=== PATIENT | female | born 1980 | race American Indian/Alaskan Native ===

== ENCOUNTER 2016-11-25 09:51 | Emergency (ER) | payer SELFPAY ==
[2016-11-25 10:05] VITALS: BP 121/82
[2016-11-25 11:13] LABS: Bilirubin,Urine NEG (Negative); Blood,Urine NEG (Negative); Ketones,Urine NEG (Negative); Leukocyte Esterase,Urine NEG (Negative); Nitrite,Urine NEG (Negative); Protein,Urine <15 mg/dL mg/dL (Negative); Urobilinogen,Urine < 2.0 mg/dL (<2.0)
[2016-11-25 11:17] LABS: WBC,Urine < 1.0 /HPF (0.0-6.0)
[2016-11-25] MEDS ORDERED: TORADOL IM ONE (11:51)
--- NOTE | 2016-11-25 12:20 | XRay Report ---
RIGHT KNEE, 2 views: History: Pain after fall. The bony architecture is intact without evidence of fracture or dislocation. No significant soft tissue abnormality is seen. IMPRESSION: Unremarkable right knee.
[2016-11-25 13:14] LABS: Mucus,Urine FEW /HPF
--- NOTE | 2016-11-25 14:21 | Emergency Department Report ---
Entered by ETHEL IRVIN, acting as scribe for TENA PALMA PA. ED Lower Extremity HPI - General Chief Complaint: Pain General Stated Complaint: RT KNEE PAIN Time Seen by Provider: 11/25/16 11:30 Source: patient Mode of arrival: Ambulatory Limitations: No Limitations - History of Present Illness Initial Comments: 36 year old female presents to the ED for evaluation of right knee pain for 4 days. Per patient, her knee collapsed while she was walking causing her to fall to ground. She states she heard a pop when injury occurred. She describes her pain as sharp and burning. She also reports associated intermittent numbness and tingling from right knee up to right hip. Patient reports she took a prescription pain tablet after onset but does not recall name of medication. MD Complaint: knee injury Onset/Timin -: days(s) Injury: Knee: Right (knee "collapsed" while walking, heard "pop") Type of Injury: unknown Improves With: nothing Worsens With: weight bearing, movement Context: walking Associated Symptoms: snap/pop sensation, swelling, numbness, tingling, able to partially bear weight, ambulatory Treatments Prior to Arrival: other (Rx pain medicaiton, patient does not recall name) - Related Data Previous Rx's Medication Instructions Recorded Last Taken Type Cyclobenzaprine [Flexeril] 10 mg PO QHS PRN #20 tablet 11/25/16 Unknown Rx Ketorolac [Toradol] 10 mg PO Q6H PRN #30 tablet 11/25/16 Unknown Rx Allergies Allergy/AdvReac Type Severity Reaction Status Date / Time Penicillins Allergy Mild Unknown Verified 11/25/16 10:07 ED Review of Systems Comment: All other systems reviewed and negative Constitutional: denies: chills Gastrointestinal: denies: abdominal pain, nausea, vomiting Musculoskeletal: other (pain and swelling to right knee, "pop" sound) Neurological: numbness (from right knee up to right hip), paresthesias (from right knee up to right hip) ED Past Medical Hx - Past Medical History Previous Medical History?: No - Surgical History Past Surgical History?: No - Social History Smoking Status: Current Some Day Smoker Substance Use Type: Alcohol - Medications Home Medications: Home Medications Medication Instructions Recorded Confirmed Last Taken Type Cyclobenzaprine [Flexeril] 10 mg PO QHS PRN #20 tablet 11/25/16 Unknown Rx Ketorolac [Toradol] 10 mg PO Q6H PRN #30 tablet 11/25/16 Unknown Rx ED Physical Exam - General Limitations: No Limitations - Other Other exam information: GENERAL: Patient is alert and oriented x 3. No apparent distress, normal gait, atraumatic. HEAD: Head is normocephalic and atraumatic. LUNGS: Symmetrical with respiration. No wheezing, rales or crackles, CTAB. HEART: Regular rate and rhythm with normal S1/S2 present. No murmurs, rubs, or gallops. EXTREMITIES/MUSCULOSKELETAL: No cyanosis, clubbing, rash, lesions or edema. Mild pain with flexion and extension of right knee. Mild swelling to right knee with no erythema. Mild tenderness to palpation of right knee. No pain with flexion or extension of left knee. No calf tenderness bilaterally. UE/LE Pulses 2+ bilaterally. LE and UE 5+ strength bilaterally. Patient is ambulatory in the emergency department. SKIN: Warm and dry. No lesions, ulceration or induration present NEUROLOGIC: No focal deficit., Cranial nerves II - XII are grossly intact. No loss of sensation. PSYCHIATRIC: Mood is congruent with affect. ED Course Vital Signs 11/25/16 10:00 Temperature 98.8 F Pulse Rate 80 Respiratory 18 Rate Blood Pressure 121/82 O2 Sat by Pulse 99 Oximetry ED Lower Extremity MDM - Medical Decision Making 36-year-old female presents with knee pain. ED course: Patient received 60 mg of Toradol Knee x-ray ordered. X-ray shows no fractures no dislocation no acute injury no tissue swelling. Discussed sinus to patient. Discussed patient sits a home medication of Flexeril and Toradol. Discussed patient follow up with primary care physician. She will position sense a complaint of follow-up. Vital signs stable. Patient is in no acute respiratory distress. ED Disposition Clinical Impression: Knee pain, right Qualifiers: Chronicity: unspecified Qualified Code(s): M25.561 - Pain in right knee Arthralgia Qualifiers: Joint pain location: knee Laterality: right Qualified Code(s): M25.561 - Pain in right knee Disposition: DISCHARGED TO HOME OR SELFCARE Is pt being admited?: No Does the pt Need Aspirin: No Condition: Stable Instructions: Arthralgia (ED), Knee Pain (ED), Knee Exercises (GEN) Prescriptions: Cyclobenzaprine [Flexeril] 10 mg PO QHS PRN #20 tablet PRN Reason: Muscle Spasm Ketorolac [Toradol] 10 mg PO Q6H PRN #30 tablet PRN Reason: Pain Referrals: PRIMARY CAREMD [Primary Care Provider] - 3-5 Days MAISHA ZUNIGA MD [Referring] - 3-5 Days [facility] [Outside] - 3-5 Days [facility]Outside[facility] - 3-5 Days [facility] [Outside] - 3-5 Days Forms: Work/School Release Form(ED) Time of Disposition: 12:35 This documentation as recorded by the ALBARO ruggiero REBEKAH,accurately reflects the service I personally performed and the decisions made by MINERVA duff OYINLOLA A , PA.
== END 2016-11-25 12:46 | disposition home or self-care (01) ==
LOC: ED 09:51
DX: M25.561 Pain in right knee (principal); Z88.0 Allergy status to penicillin; Z72.0 Tobacco use; W18.30XA Fall on same level, unspecified, initial encounter; Y93.89 Activity, other specified; Y99.9 Unspecified external cause status; Y92.89 Other specified places as the place of occurrence of the external cause
CPT/HCPCS: 73560; 81001; 81025; 96372; 99283; J1885

== ENCOUNTER 2016-12-14 11:53 | Emergency (ER) | payer SELFPAY ==
[2016-12-14] MEDS ORDERED: TYLENOL ONE (13:42)
[2016-12-14 13:55] VITALS: BP 134/85
[2016-12-14] MEDS ORDERED: TYLENOL PO ONE (13:56)
--- NOTE | 2016-12-14 14:55 | Emergency Department Report ---
Entered by REECE PAK, acting as scribe for SCOTTY GRANT NP. Chief Complaint: Sore Throat Stated Complaint: SORE THROAT Time Seen by Provider: 12/14/16 14:50 - HPI History of Present Illness: Patient presents to the ED c/o sore throat. Associated symptoms includes diaphoresis, fever, and cough with moderate sputum. - ROS Review of Systems: All other systems reviewed are negative unless stated in HPI above. - Exam Vital Signs: Vital Signs 12/14/16 13:53 Temperature 98.6 F Pulse Rate 75 Respiratory 18 Rate Blood Pressure 134/85 O2 Sat by Pulse 96 Oximetry Physical Exam: General: alert and oriented ENT: throat erythema MSE screening note: Focused history and physical exam performed. Due to findings the following was ordered: ED Medical Decision Making - Medical Decision Making Patient seen by provider in triage area. Patient's strep test was positive. ED Disposition for MSE Condition: Stable This documentation as recorded by the scribe,REECE PAK,accurately reflects the service I personally performed and the decisions made by MONICA duff CATHLEEN A, NP.
--- NOTE | 2016-12-14 14:58 | Emergency Department Report ---
ED ENT HPI - General Chief complaint: Sore Throat Stated complaint: SORE THROAT Time Seen by Provider: 12/14/16 14:54 Source: patient Mode of arrival: Ambulatory Limitations: No Limitations - Related Data Previous Rx's Medication Instructions Recorded Last Taken Type Cyclobenzaprine [Flexeril] 10 mg PO QHS PRN #20 tablet 11/25/16 Unknown Rx Ketorolac [Toradol] 10 mg PO Q6H PRN #30 tablet 11/25/16 Unknown Rx Cephalexin [Keflex] 500 mg PO Q12HR #20 cap 12/14/16 Unknown Rx Allergies Allergy/AdvReac Type Severity Reaction Status Date / Time Penicillins Allergy Mild Unknown Verified 11/25/16 10:07 ED Dental HPI - General Chief complaint: Sore Throat Stated complaint: SORE THROAT Time Seen by Provider: 12/14/16 14:54 Source: patient Mode of arrival: Ambulatory Limitations: No Limitations - Related Data Previous Rx's Medication Instructions Recorded Last Taken Type Cyclobenzaprine [Flexeril] 10 mg PO QHS PRN #20 tablet 11/25/16 Unknown Rx Ketorolac [Toradol] 10 mg PO Q6H PRN #30 tablet 11/25/16 Unknown Rx Cephalexin [Keflex] 500 mg PO Q12HR #20 cap 12/14/16 Unknown Rx Allergies Allergy/AdvReac Type Severity Reaction Status Date / Time Penicillins Allergy Mild Unknown Verified 11/25/16 10:07 ED Review of Systems ROS: Stated complaint: SORE THROAT Other details as noted in HPI ED Past Medical Hx - Social History Smoking Status: Current Some Day Smoker Substance Use Type: Alcohol - Medications Home Medications: Home Medications Medication Instructions Recorded Confirmed Last Taken Type Cyclobenzaprine [Flexeril] 10 mg PO QHS PRN #20 tablet 11/25/16 Unknown Rx Ketorolac [Toradol] 10 mg PO Q6H PRN #30 tablet 11/25/16 Unknown Rx Cephalexin [Keflex] 500 mg PO Q12HR #20 cap 12/14/16 Unknown Rx ED Physical Exam - General Limitations: No Limitations ED Course Vital Signs 12/14/16 13:53 Temperature 98.6 F Pulse Rate 75 Respiratory 18 Rate Blood Pressure 134/85 O2 Sat by Pulse 96 Oximetry Critical care attestation.: If time is entered above; I have spent that time in minutes in the direct care of this critically ill patient, excluding procedure time. ED Disposition Clinical Impression: Strep pharyngitis Disposition: DISCHARGED TO HOME OR SELFCARE Is pt being admited?: No Does the pt Need Aspirin: No Condition: Good Instructions: Pharyngitis (ED) Additional Instructions: FLUIDS MOTRIN AND TYLENOL FOR PAIN OR FEVER TAKE MEDS UNTIL GONE FOLLOW UP PCP IF WORSENS Prescriptions: Cephalexin [Keflex] 500 mg PO Q12HR #20 cap Time of Disposition: 14:56
== END 2016-12-14 15:12 | disposition home or self-care (01) ==
LOC: ED 11:53
DX: J02.0 Streptococcal pharyngitis (principal); F17.200 Nicotine dependence, unspecified, uncomplicated; Z88.0 Allergy status to penicillin
CPT/HCPCS: 87430; 99282